=== PATIENT | female | born 1970 | race Asian ===

== ENCOUNTER 2025-03-22 10:05 | Emergency (ER) | payer OTHER, SELFPAY ==
[2025-03-22 10:08] VITALS: BP 115/80; PULSE 103; RESP 18; TEMP 36.3; O2SAT 97
--- OUTSIDE RECORDS SUMMARY | 2025-03-22 10:08 | XMS_ITS | Clinical Summary ---
Author Organization [facility] Address [address] [place] [id number] Care Team Providers Care Associate Professor Physician Name Role Phone Jailene Brasher DO Primary Care Provider [phone] Allergies No known active allergies Medications cyanocobalamin, vitamin B-12, (VITAMIN B-12 ORAL) Take by mouth. Active cholecalciferol, vitamin D3, (VITAMIN D3 ORAL) Take by mouth. Active vitamin E 200 unit capsule Take 200 units by mouth once daily. Active cyclobenzaprine (FLEXERIL) 5 mg tabletIndication s:Paresthesia of left leg Take 1 Tablet (5 mg) by mouth 3 times daily if needed for Muscle Spasm. 15 Tablet 1 08/03/2024 Active Active Problems Problem Noted Date Diagnosed Date Colon polyp 03/03/2021 Overview (04/16/2024): Colonoscopy 03/2021 sessile serrated adenoma within the appendiceal orifice that could not be removed completely, 4 mm tubular adenoma, recommend surgical resection of sessile serrated adenoma Updated colonoscopy 04/2022, recommended repeat in 5 years. Allergic rhinitis, cause unspecified 09/27/2006 Encounters Date Type Department Care Team Description 03/22/2025 Nurse Triage [facility] [address] [place] [address] Mel Wright, HUMBERTO Abdominal Pain from Last 3 Months Immunizations Immunization Administration Dates Next Due AMB Influenza, IIV3 (Age >=3 years)(Flu Clinic Only) 04/25/2008 COVID-19 vaccine (Moderna 100mcg/0.5mL) CHAYA GRISSOM 05/27/2021,10/29/2020,10/01/2020 COVID-19 vaccine (Moderna 50mcg/0.5mL) 12YO+ BIVALENT PF, MDV 06/10/2022 INFLUENZA, IIV3 PF (AGE >= 6 MO) 03/09/2024 Influenza A (H1N1), Inactiva shaunna (Age 6-35 Mos) 06/11/2009 Influenza, IIV3 (Age >=3 years) 04/03/20 15,05/04/2010,04/25/2008,2005,05/24/2005,05/14/2003,05/18/2002 Influenza, IIV4 04/09/2023,,04/14/2021,2016,04/07/2016,03/14/2014,04/23/2013 Influenza, IIV4 (=>6mos) MDV 04/18/2019 Influenza,CCIIV4 PRESERV FREE 04/12/2018 Td (Age >=7 Years) 11/17/2017 Tdap 06/06/2008 Tuberculin (PPD) 10/18/1997 Zoster (Shingrix-RZV, recombinant) 01/20/2024, Family History Medical History Relation Name Comments Good Health Brother Good Health Father Hypertension Father Good Health Mother Hypertension Mother Good Health Sister Cancer-breast No Family History Cancer-ovarian No Family History Relation Name Status Comments Brother Father Mother Sister Social History Tobacco Use Types Packs/Day Years Used Date Smoking Tobacco: Never Smokeless Tobacco: Never Tobacco Cessation:Counseling Given: Yes Alcohol Use Standard Drinks/Week Comments No 0 (1 standard drink = 0.6 oz pur e alcohol) PHQ-2 Answer Date Recorded PHQ-2 TOTAL SCORE 0 03/21/2023 Social Connections Answer Date Recorded Do you often feel lonely or isolated from those around you? 0 04/16/2024 Financial Resource Strain Answer Date R ecorded Difficulty of Paying Living Expenses 3 04/16/2024 Difficulty of Paying Living Expenses Not on file 04/16/2024 Food Insecurity Answer Date Recorded Do you worry your food will run out before you are able to buy more? 1 04/16/2024 Transportation Needs Answer Date Record ed Does lack of transportation keep you from medica l appointments? 1 04/16/2024 Does lack of transportation keep you from work, meetings or getting things that you need? 1 04/16/2024 Housing Stability Answer Date Recorded What is your housing situation today? 1 04/16/2024 Utilities Answer Date Recorded Do you have trouble paying f or utilities (for example, heat, electricity, water, phone)? 1 04/16/2024 Comments No Sex and Gender Information Value Date Recorded Sex Assigned at Not on file Legal Sex Female 5:46 AM [employer] Gender Identity Not on file Sexual Orientation Not on file Obstetrics History Para Term AB IAB SAB Ectopic Multiple Livin g Live Births 2 2 2 Date Outcome GA Total Labor Labor//3rd Weight Sex Type Anes PTL Elizabeth A1 A5 Name Clin Term Term Last Filed Vital Signs Vital Sign Reading Time Taken Comments Blood Pressure 112/76 08/03/2024 3:11 PM [employer] Pulse 92 08/03/2024 3:11 PM [employer] Temperature 36.6 C (97.9 F) 03/17/2021 3:22 PM CDT Respiratory Rate 20 03/17/2021 3:22 PM CDT Oxygen Saturation 98% 08/03/2024 3:11 PM [employer] Inhaled Oxygen Concentration - - Weight 55.6 kg (122 lb 9.6 oz) 04/16/2024 8:33 A M CDT Height 151.6 cm (4' 11.69) 04/16/2024 8:33 AM C DT Body Mass Index 24.2 04/16/2024 8:33 AM CDT Plan of Treatment Upcoming Encounters Date Type Department Care Team (Late st Contact Info) Description 04/17/2025 7:30 AM CDT Office Visit [facility] [address] [place] [address] Jailene Brasher, [address] [place] [address] Health Maintenance Due Date Last Done Comments Hepatitis B series for 19+ ( 1 of 3 - 19+ 3-dose series) 1989 Pneumococcal series for age 50+ (1 of 1 - PCV) 2020 Depression screening for age 12+ 03/21/2024 03/21/2023, 01/15/2021, 01/30/2020, Additional history exists Pap test for age 21-65 01/29/2025 0, 01/30/2020, 10/08/2016, Additional history exists COVID-19 vaccine series ( season) 2025 06/10/2022, 05/27/2021, 10/29/2020, Additional history exists Influenza Vaccine (#1) 2025 4, 04/09/2023, 03/11/2022, Additional history exists BMI (ht and wt on same day) for age 18+ 04/16/2025 04/16/2024, 03/21/2023, 01/21/2022, Additional history exists Mammogram for age 45-75 04/18/2025 04/18/20 24, 03/16/2023, 02/19/2022, Additional history exists Colonoscopy through age 75 04/08/202704/08, 04/08/2022, 04/08/2022, Additional history exists Tetanus booster 11/18/2027 11/17/2017, 06/06/2008 Lipids for age 45-75 04/16/2029 04/16/2024, 01/21/2022, 01/24/2020, Additional history exists RSV vaccine for adults or (1 - 1-dose 75+ series) 2045 Hepatitis C screening for ag e 18-79 Completed 10/08/2016 HIV for age 15-65 Completed 03/21/2023 Zoster (shingles) series for age 50+ Completed 01/20/2024, 03/21/2023 Procedures Procedure Name Priority Date/Time Associated Diagnosis Comments XR MAMMO BILAT SCREENING Routine 04/18/2024 4:54 PM CDT Visit for screening mammogram LIPID PANEL W REFLEX MEASURED LDL Routine 04/16/2024 9:32 AM CDT Routine general medical examination at health care facility ANTI HIV 1/2 Routine 03/21/2023 11:27 AM CDT Screening for HIV (human immunodeficiency virus) COLONOSCOPY SCREENING Routine 04/08/2022 10:41 AM CDT History of colon polyps ARTIST RELATIONSHIP MANAGER THIN PREP PAP DIAGNOSTIC IMAGED Routine 01/30/2020 3:33 PM CDT Lesion of cervix ANTI HCV Routine 10/08/2016 9:21 AM CDT Need for hepatitis C screening test from Last 3 Months or Most Recently Relevant to Health Maintenance Results * XR MAMMO BILAT SCREENING (04/18/2024 4:54 PM CDT) Anatomical Region Laterality Modality BREASTS, Breast Left, Breast Right Bilateral Mammography Impressions 04/20/2024 4:31 PM CDT There is no radiographic evidence for malignancy. Recommend annual mammograms. MAMMOGRAM ASSESSMENT: ACR 1 Negative PATIENTS: You will also receive a letter with your examination results in an easy to read format. If you have questions about your results, please contact your referring provider. Narrative 04/20/2024 4:31 PM CDT For Patients: As a result of the Century Cures Act, medical imaging exams and procedure reports are released immediately into your electronic medical record. You may view this report before your referring provider. If you have questions, please contact your health care provider. XR MAMMO BILAT SCREENING [[id number]] CLINICAL HISTORY: This is an asymptomatic 53 y.o. patient. INDICATION FOR EXAM: Mammogram Screening. TECHNIQUE: CC & MLO views were obtained. This study was evaluated with the assistance of Computer-Aided Detection. COMPARISON FILM: Yes 03/16/23 [facility] 02/19/22 [employer] FINDINGS: The breasts are heterogeneously dense, which may obscure small masses. There are no dominant masses, suspicious micro calcifications or areas of architectural distortion. us Jailene Brasher DO MAMMO Final Resu lt * (ABNORMAL) LIPID PANEL W REFLEX MEASURED LDL (04/16/2024 9:32 AM CDT) CHOLESTEROL, TOTAL 224(H) <200 mg/dL [facility] HDL CHOLESTEROL 55 > OR = 50 mg/dL [facility] TRIGLYCERIDES 119 <150 mg/dL [facility] LDL-CHOLESTEROL 145(H) mg/dL (calc) [facility] Comment: Reference range: <100 Desirable range <100 mg/dL for primary prevention; <70 mg/dL for patients with CHD or diabetic patients with > or = 2 CHD risk factors. LDL-C is now calculated using the Jaye calculation, which is a validated novel method providing better accuracy than the Friedewald equation in the estimation of LDL-C. Santhosh SS et al. CHANTELL. 2013;310(09): 5240-8200 (http://education.two.42.solutions/faq/YMI708) CHOL/HDLC RATIO 4.1 <5.0 (calc) [facility] NON HDL CHOLESTEROL 169(H) <130 mg/dL (calc) [facility] Comment: For patients with diabetes plus 1 major ASCVD risk factor, treating to a non-HDL-C goal of <100 mg/dL (LDL-C of <70 mg/dL) is considered a therapeutic option. Blood BLOOD SPECIMEN / Unknown 04/16/2024 9:32 AM CDT 04/16/2024 9:33 AM CDT Jailene Brasher DO CHEMISTRY Final Resu lt [facility] [address] [place] [address], [facility] [address] [place] [address] * ANTI HIV 1/2 [44624.0] (03/21/2023 11:27 AM CDT) HIV-1/HIV-2 SCREEN Non-Reacti ve Non-Reacti ve 03/22/2023 3:59 AM CDT [facility] Comment:HIV-1 p24 and HIV-1/ HIV-2 Ab Not Detected. Blood BLOOD SPECIMEN / Unknown Venipuncture / Unknown 03/21/2023 11:27 AM CDT 03/21/2023 11:27 AM CDT us Jailene Brasher DO SEND OUTS Final Resu lt [facility] [address] [place] [address], [place] * COLONOSCOPY (04/08/2022 10:55 AM CDT) 04/08/2022 10:5 5 AM CDT Narrative Transcriptions Santhosh Harrison MD - 04/08/2022 12:31 PM CDT Patient Name: Ambrose Taylor Procedure Date: 04/08/2022 Gender: Female Date of : 1970 Admit Type: Outpatient Procedure: Colonoscopy Proceduralist: Santhosh Harrison MD , Gill Platt RN (Nurse), Mona Liang (Nurse) Referring MD: [place] Indications/Pre-Op Diagnosis: High risk colon cancer surveillance:Personal history of adenoma (10 mm or greater insize), Last colonoscopy: February 2021 Medications: Fentanyl 100 micrograms IV, Midazolam 2 mgIV, The level of sedation administered wasmoderate Procedure Description: The patient had risks, benefits and alternatives explained to andgave informed consent. The patient had a stable cardiopulmonary status and judged an adequate candidate for conscious sedation. The [id number] was passed through the anus and advanced to the cecum, identified by appendiceal orifice and ileocecal valve. Thecolonoscopy was performed without difficulty. The patient tolerated the procedure well. The quality of the bowel preparation was good. The ileocecal valve, appendiceal orifice, and rectum were photographed. Complications: No immediate complications. Estimated Blood Loss & Specimen: Estimated blood loss: none. Specimen collected - None Findings: The perianal and digital rectal examinations were normal. The entire examined colon appeared normal. Impressions/Post-Op Diagnosis: - The entire examined colon is normal. - No specimens collected. Recommendation: - Patient has a contact number available for emergencies. The signsand symptoms of potential delayed complications were discussed with the patient. Return to normal activities tomorrow. Written discharge instructions were provided to the patient. - Resume previous diet. - Continue present medications. - Repeat colonoscopy in 5 years for surveillance. Moderate Sedation: A time out was performed before the procedure. Moderate (conscious) sedation was administered by the endoscopy nurse and supervised bythe endoscopist. The following parameters were monitored: oxygensaturation, heart rate, blood pressure, EKG, CO2, respiratory rate, adequacy of pulmonary ventilation and reponse to care. Please refer to the patient's medical record flowsheets and nursing notes for moderate sedation details. Total physician intraservice time was 18 minutes. Santhosh Harrison MD 04/08/2022 12:31:16 PM This report has been signed electronically. Note Initiated On: 04/08/2022 10:55 AM Procedure Code(s): --- Professional --- 39730, Colonoscopy, flexible; diagnostic, including collection of specimen(s) bybrushing or washing, when performed (separateprocedure) Diagnosis Code(s): --- Professional --- Z86.010, Personal history of colonicpolyps CPT copyright 2020 [employer]. All rights reserved. The codes documented in this report are preliminary and upon material flow analyst reviewmay be revised to meet current compliance requirements. Scope In: 11:56:10 AM Scope Withdrawal Time 0 hours 6 minutes 55 seconds Scope Out: 12:12:56 PM us Santhosh Harrison MD PROCEDURE ORD Final Res ult * ARTIST RELATIONSHIP MANAGER THIN PREP PAP DIAGNOSTIC IMAGED (01/30/2020 3:33 PM CDT) Case Report Gynecologic Cytology Report Case: [id number] Authorizing Provider: Ronda Carrizales MD Collected: 01/30/2020 1533 Ordering Location: [facility] Received: 01/30/2020 1552 Clinic First Screen: Priti Saunders Rescreen: Joan Washburn Specimen: ARTIST RELATIONSHIP MANAGER ThinPrep Vial Diagnostic, Cervical 02/08/2020 1:15 PM CDT [facility] INTERPRETATION/ RESULT NEGATIVE FOR INTRAEPITHELIAL LESION OR MALIGNANCY (NIL) (none) 02/08/2020 1:15 PM CDT [facility] at 1315 CDT SPECIMEN ADEQUACY Satisfactory for evaluation Endocervical component present 02/08/2020 1:15 PM CDT [facility] [facility] HPV REQUEST HPV and PAP 02/08/2020 1:15 PM CDT [facility] Date of LMP 01/21/2020 02/08/2020 1:15 PM CDT [facility] [facility] Last Pap Date 10/08/16 02/08/2020 1:15 PM CDT [facility] Last Pap Result NIL 0 1:15 PM CDT [facility] Abnormal Pap or [place] Bx in last 5 years No 02/08/2020 1:15 PM CDT [facility] Menstrual Status Regular Periods 02/08/2020 1:15 PM CDT [facility] [place] Bx Done Today No 02/08/2020 1:15 PM CDT [facility] Additional Information None Given 02/08/2020 1:15 PM CDT [facility] Comment: Cytology is screened at [facility] - [address], [place] [address] and [facility] - [address], [place] [address] and [facility] - [address] [place] [address] [facility]ed at [facility] - [address], [place] [address] Automated Review Successful 02/08/2020 1:15 PM CDT [facility] Comment:Specimen processed s uccessfully by automated powder truck driver device, ThinPrep Imaging System, [employer] ANCILLARY TESTING ARTIST RELATIONSHIP MANAGER HPV Ordered, Please see separate report 02/08/2020 1:15 PM CDT [facility] Note The pap test is a screening technique, not a diagnostic procedure. It is used primarily to screen for squamous cancers and precursor lesions. Published studies have shown that it is subject to both false negative and false positive results. The pap test should not be used as the sole means to diagnose or exclude pre-malignant and malignant lesions. 02/08/2020 1:15 PM CDT [facility] Other (Cervical) Non-Blood / Unknown 01/30/2020 3:33 PM CDT 01/30/2020 3:52 PM CDT us Ronda Carrizales MD PATHOLOGY/CYTOLOGY Final Re sult [facility] [address] [place] [address], [place] * ANTI HCV (10/08/2016 9:21 AM CDT) HEPATITIS C ANTIBODY Non-Reacti ve Non-Reacti ve 10/08/2016 4:29 PM CDT [facility] Blood BLOOD SPECIMEN / Unknown Venipuncture / Unknown 10/08/2016 9:21 AM CDT 10/08/2016 9:21 AM CDT Narrative [facility] - 10/08/2016 4:29 PM CDT Antibodies to HCV not detected; does not exclude the possibility of exposure to HCV. us Avery Stokes MD SEND OUTS Final Resu lt [facility] [address] [place] [address], [place] from Last 3 Months or Most Recently Relevant to Health Maintenance Insurance [facility] Care Teams Associate Professor Physician Relationship Specialty Start Date End Date Jailene [place] [address] PCP - General Family Practice 03/21/23
--- NOTE | 2025-03-22 10:35 | CRLHL7_ITS ---
For Patients: As a result of the Century Cures Act, medical imaging exams and procedure reports are released immediately into your electronic medical record. You may view this report before your referring provider. If you have questions, please contact your health care provider. INDICATION: Right upper quadrant abdomen pain TECHNIQUE: Ultrasound abdomen limited. Sonographic images of the right upper quadrant were obtained using yun-scale and color Doppler images. COMPARISON: None FINDINGS: Liver: Normal in contour. Hepatic cyst within the right lobe measuring 7.9 x 9.4 x 7.2 centimeters. Septation as well as possible debris along the inferior margin of the cyst. Separate simple 2.2 centimeter cyst. Gallbladder: No stones or sludge. Normal wall thickness. No pericholecystic fluid. Common bile duct: 2 mm. Pancreas: Partially obscured by bowel gas without discrete lesion. Right kidney: Normal in size. Normal echotexture and cortex. No masses, stones, or hydronephrosis. Vasculature: Proximal abdominal aorta and IVC are normal. IMPRESSION: 1. No evidence of cholelithiasis or cholecystitis. 2. Hepatic cysts with the largest measuring 9.4 centimeters. The largest hepatic cyst has some complexity with some avascular hypoechoic material within the dependent portion of the cyst on ultrasound. This can represent proteinaceous debris, hemorrhage or infection. Dictated by Thomas Buitrago MD @ 03/22/2025 12:12:32 PM (Electronically Signed)
--- NOTE | 2025-03-22 10:48 | ED.ABDPAIN ---
HPI - Abdominal Pain General Chief Complaint: Abdominal Pain Stated Complaint: R abdomen pain Time Seen by Provider: 03/22/25 10:29 History of Present Illness HPI narrative: Patient is a healthy 54-year-old woman who presents with right upper quadrant pain for 3 days duration. She has had some anorexia and nausea. No change in her bowel or bladder. She has had no problems in the past with her gallbladder or right upper quadrant. She has no significant alcohol history. She has had no fevers no chills no night sweats. She has otherwise been in her usual state of health. Pain is 8/10 and radiates through to her back. Related Data Home Medications ?Medication ?Instructions ?Recorded ?Confirmed No Known Home Medications 10/27/24 03/22/25 Allergies Allergy/AdvReac Type Severity Reaction Status Date / Time No Known Drug Allergies Allergy Verified 03/22/25 10:15 Review of Systems Status of ROS Reports: 10 or more systems reviewed and unremarkable except as noted in History and below [facility] Social History Smoking Status: Never smoker How often do you have a drink containing alcohol: never AUDIT-C Alcohol total score: 0 Non-prescribed substance use: denies use Exam Narrative: Exam Narrative: EXAM GENERAL: Patient appears comfortable and well. EYES: No scleral icterus. LYMPH: No supraclavicular or cervical lymphadenopathy. SKIN: Visible skin seen during exam normal or with benign process only. EXT: No dependent lower extremity pedal edema. HEART: Regular rate and rhythm with no murmurs, rubs, or gallops. LUNGS: Clear to auscultation bilaterally with no crackles or wheezes. ABD: Soft, non tender, non distended. Minimal pain to palpation the right upper quadrant. PSYCH: Good eye contact, speech is not pressured. Const: Vital Signs, click to edit/add: Vital Signs - 24 hr 03/22/25 10:08 Temperature 97.4 F L Pulse Rate [Right Pulse Oximeter] 103 H Respiratory Rate 18 Blood Pressure [Ri ght Upper Arm] 115/80 Pulse Oximetry 97 Oxygen Delivery Me thod Room Air Course Course ED Course: Patient seen examined. IV placed normal saline and Toradol given. Comprehensive metabolic panel CBC lipase lactate ultrasound right upper quadrant pending. Vital Signs Vital signs: Initial Vital Signs Temperature 97.4 F L 03/22/25 10:08 Temperature Source Temporal Artery Scan 03/22/25 10:08 Pulse Rate 103 H 03/22/25 10:08 Pulse Rhythm Regular 03/22/25 10:08 Pulse Strength 3+ Normal 03/22/25 10:08 Respiratory Rate 18 03/22/25 10:08 Blood Pressure 115/80 03/22/25 10:08 Blood Pressure Mean 91 03/22/25 10:08 Blood Pressure Position Sitting 03/22/25 10:08 Pulse Oximetry 97 03/22/25 10:08 Oxygen Delivery Method Room Air 03/22/25 10:08 Vital Signs Temperature 97.4 F L 03/22/25 10:08 Pulse Rate 103 H 03/22/25 10:08 Respiratory Rate 18 03/22/25 10:08 Blood Pressure 115/80 03/22/25 10:08 Pulse Oximetry 97 03/22/25 10:08 Oxygen Delivery Method Room Air 03/22/25 10:08 Temperature 97.4 F L 03/22/25 10:08 Pulse Rate 103 H 03/22/25 10:08 Respiratory Rate 18 03/22/25 10:08 Blood Pressure 115/80 03/22/25 10:08 Pulse Oximetry 97 03/22/25 10:08 Oxygen Delivery Method Room Air 03/22/25 10:08 Medications Administered Medications: Discontinued Medications Generic Name Dose Route Start Last Admin Trade Name Freq PRN Reason Stop Dose Admin Sodium Chloride 1,000 mls @ 1,000 mls/hr 03/22/25 10:36 03/22/25 10:54 0.9 % Sodium Chloride 1000 Ml IV 03/22/25 11:35 1,000 mls/hr .Q1H MELECIO Administration Ketorolac Tromethamine 30 mg 03/22/25 10:36 03/22/25 10:55 Ketorolac 30 Mg/Ml Inj IVP 03/22/25 10:37 30 mg ONCE ONE Administration MDM - Abdominal Pain MDM Narrative Medical decision making narrative: Patient is a 54-year-old woman who presents with right upper quadrant pain. Her labs are reassuring with the exception of mild elevation in her transaminases. She underwent ultrasound which old really normal looking gallbladder but numerous large hepatic cysts are noted. Patient likely is having pain from her cysts and at this time I did treated with oxycodone as well as close outpatient follow-up. Would recommend that her primary physicians here in the next few days and consider setting her up as an outpatient with [facility]. Lab Data Labs: Lab Results 03/22/25 Range/Units 10:40 WBC 6.64 (4.50-11.00) K/uL RBC 4.59 (4.00-5.20) m/uL Hgb 12.8 (12.0-16.0) gm/dL Hct 40.5 (33.0-51.0) % MCV 88 (80-100) fL MCH 28 (26-34) pg MCHC 32 (32-36) gm/dL RDW Coeff of Kami 13.0 (11.5-15.5) % Plt Count 323 (140-440) K/uL Neut % (Auto) 67.7 (42.0-72.0) % Lymph % (Auto) 19.9 L (20-44) % Travis % (Auto) 11.0 (0.0-11.0) % Eos % (Auto) 0.8 (0.0-7.0) % Baso % (Auto) 0.6 (0.0-3.0) % Neut # (Auto) 4.50 (1.7-7.0) K/uL Lymph # (Auto) 1.30 (0.90-2.90) K/uL Travis # (Auto) 0.70 (0.00-0.90) K/UL Eos # (Auto) 0.05 (0.00-0.50) K/uL Baso # (Auto) 0.04 (0.00-0.30) K/uL Abs Immat Gran (auto) 0.00 (0.00-0.30) K/uL Imm/Tot Granulo (auto) 0.0 % Sodium 137 (135-149) mmol/L Potassium 4.0 (3.6-5.1) mmol/L Chloride 101 (96-114) mmol/L Carbon Dioxide 29 (20-32) mmol/L Anion Gap 7 (7-15) mEq/L BUN 17 (7-30) mg/dL Creatinine 0.6 (0.5-1.5) mg/dL Estimated GFR 107 ml/min Glucose 124 H (60-115) mg/dL Lactate 1.1 (0.5-1.9) mmol/L Calcium 9.2 (8.4-10.6) mg/dL Total Bilirubin 0.7 (0.1-1.5) mg/dL AST 64 H (12-35) U/L ALT 83 H (4-35) U/L Alkaline Phosphatase 107 (40-150) U/L Total Protein 8.1 (6.0-8.3) g/dL Albumin 4.3 (3.3-5.0) g/dL Lipase 49 (23-300) U/L Urine Color Yellow (Yellow) Urine Appearance Clear (Clear) Urine pH 7.0 (5.0-8.5) Ur Specific [place] 1.020 (1.000-1.030) Urine Protein Negative (Negative) Urine Glucose (UA) Negative (Negative) Urine Ketones Negative (Negative) Urine Blood Negative (Negative) Urine Nitrite Negative (Negative) Urine Bilirubin Negative (Negative) Urine Urobilinogen 0.2 (0.2-1.0) Ur Leukocyte Esterase 1+ A (Negative) Urine RBC 0-2 (0-2) Urine WBC 0-2 (0-5) Ur Squamous Epith Cells None (None-Few) Urine Bacteria None (None) Discharge Plan Discharge Clinical Impression: Cystic disease of liver Patient Disposition: Home, Self-Care Condition: Stable Additional Instructions: Oxycodone for pain. No driving or using machinery while taking medication. Ice/warm compresses. Follow-up with your doctor next week to discuss referral to liver specialist. Activity Level: No Restrictions Discharge Diet: Regular Prescriptions: No Action No Known Home Medications Follow Up/Referrals: Provider,Not a Local [Primary Care Provider, Family Practice] Stand Alone Forms: Virtual View Appth Info Instructions
[2025-03-22 10:54] LABS: Lactate* 1.1 mmol/L (0.5-1.9)
[2025-03-22 10:56] LABS: Appearance Urine Clear (Clear)
[2025-03-22 11:03] LABS: Hematocrit* 40.5 % (33.0-51.0); Hemoglobin* 12.8 gm/dL (12.0-16.0); Immature Granulocytes Abs Auto 0.00 K/uL (0.00-0.30); Immature Granulocytes Pct Auto 0.0 %; Mean Corpuscular HGB Conc 32 gm/dL (32-36); Mean Corpuscular Hemoglobin 28 pg (26-34); Mean Corpuscular Volume 88 fL (80-100); RDW Coefficient of Variation % 13.0 % (11.5-15.5); Red Blood Count* 4.59 m/uL (4.00-5.20); White Blood Count* 6.64 K/uL (4.50-11.00)
[2025-03-22 11:05] LABS: Lymphocytes Absolute Auto 1.30 K/uL (0.90-2.90); Slide Review Reflex No
[2025-03-22 11:16] LABS: Albumin* 4.3 g/dL (3.3-5.0); Chloride* 101 mmol/L (96-114); Potassium* 4.0 mmol/L (3.6-5.1); Sodium* 137 mmol/L (135-149)
[2025-03-22 11:19] LABS: Alanine Aminotransferase* 83 U/L (4-35); Alkaline Phosphatase* 107 U/L (40-150); Anion Gap 7 mEq/L (7-15); Aspartate Amino Transferase* 64 U/L (12-35); Bilirubin Total* 0.7 mg/dL (0.1-1.5); Blood Urea Nitrogen* 17 mg/dL (7-30); Calcium* 9.2 mg/dL (8.4-10.6); Carbon Dioxide* 29 mmol/L (20-32); Creatinine* 0.6 mg/dL (0.5-1.5); Estimated Glomerular Filt Rate 107 ml/min; Glucose* 124 mg/dL (60-115); Total Protein* 8.1 g/dL (6.0-8.3)
[2025-03-22 12:50] VITALS: BP 124/85; PULSE 90; RESP 16; O2SAT 98
== END 2025-03-22 13:09 | disposition home or self-care (01) ==
PROVIDERS: Emergency Provider Internal Medicine
DX: Q44.6 Cystic disease of liver (principal)
CPT/HCPCS: 36415; 76705; 80053; 81001; 81003; 83605; 83690; 85025; 87086; 87186; 96374; 99283; 99284; J1885; J7030